=== PATIENT | female | born 1965 | race Caucasian/White ===

== ENCOUNTER 2017-09-22 14:42 | Emergency (ER) | payer BC ==
[2017-09-22 15:07] VITALS: RESP 16
--- NOTE | 2017-09-22 15:56 | EDPHY ---
H & P Stated Complaint: Lac to lower lip Time Seen by Provider: 09/22/17 15:56 HPI/ROS: HPI: This is a 52-year-old female presents with Chief Complaint: Lac to lower lip Location: Left inner and outer lip Quality: Laceration Duration: 1-2 hours prior to arrival Signs and Symptoms: No LOC, No bleeding, no radiation, no numbness, no weakness , no tingling, no incontinence, no decreased range of motion, no swelling, + pain Timing: Sudden Severity: [id number] Context: Patient was outside playing with her children and fetch with the dog when the stick accidentally hit her mouth, she felt immediate plane and had some bleeding that stopped after direct pressure. She denies any oral trauma or dental loosening. No LOC. Denies headache/neck pain. Reports her tetanus is up-to-date. Modifying Factors: Direct pressure with relief of bleeding Comment: ROS: see HPI Constitutional: No fever, no chills, no weight loss Eyes: No blurred vision Respiratory: No shortness of breath, no cough Cardiovascular: No chest pain Gastrointestinal: No nausea, no vomiting no diarrhea Genitourinary: No dysuria Extremities: No myalgias Neurologic: No weakness, no numbness Skin: No rashes Hematologic: No bruising, no bleeding MEDICAL/SURGICAL/SOCIAL HISTORY: Medical history: Generally healthy. Does not take any regular medications. Surgical history: Denies Social history: . CONSTITUTIONAL: Pleasant adult white female, appears younger than stated age, awake and alert, no obvious distress HEENT: normocephalic, PERRL, EOMI. Tympanic membranes clear. Oropharynx clear, no dental trauma, no dental loosening, 1.5 cm linear superficial incision on the left lower buccal mucosa sparing the vermilion border and 0.5 cm superficial laceration at the corner of the left side of her mouth sparing the vermilion border. no exudate and moist pink mucosa. Airway patent. No lymphadenopathy. No meningismus. Cardiovascular: Normal S1/S2, regular rate, regular rhythm, without murmur rub or gallop. PULMONARY/CHEST: Symmetrical and nontender. Clear to auscultation bilaterally. Good air movement. No accessory muscle usage. ABDOMEN: Soft, nondistended, nontender, no rebound, no guarding, no peritoneal signs, no masses or organomegaly. No CVAT. EXTREMITIES: 2/2 pulses, strength 5/5, no deformities, no clubbing, no cyanosis or edema. NEUROLOGICAL: no focal neuro deficits. GCS 15. SKIN: Warm and dry, no erythema. no rash. Good capillary refill. Source: Patient Exam Limitations: No limitations - Personal History LMP (Females 10-55): Post Menopausal Current Tetanus Diphtheria and Acellular Pertussis (TDAP): Yes - Medical/Surgical History Other PMH: healthy - Social History Smoking Status: Never smoked Constitutional: Initial Vital Signs Temperature (C) 37 C 09/22/17 15:00 Heart Rate 71 09/22/17 15:00 Respiratory Rate 16 09/22/17 15:00 Blood Pressure 104/69 09/22/17 15:00 O2 Sat (%) 98 09/22/17 15:00 O2 Delivery Mode Room Air Allergies/Adverse Reactions: Penicillins Allergy (Intermediate, Verified 09/22/17 15:04) Hives codeine Allergy (Mild, Verified 09/22/17 15:04) GI Home Medications: Medication Instructions Recorded Chlorhexidine Gluconate [Periogard] 15 ml MM Q4HRS* #240 mouthwash 09/22/17 Medical Decision Making Procedures: Procedure: Laceration repair. Verbal consent was obtained from the patient. The 1.5 cm linear superficial incision on the left lower buccal mucosa sparing the vermilion border was anesthetized in the usual fashion using 3 mL of 1% lidocaine with epinephrine. The wound was irrigated, draped and explored to its base with a gloved finger. There were no deep structures involved. No tendon injury was identified. The wound was repaired with # 3, 6 0 Vicryl in simple interrupted pattern. Good hemostasis was achieved. Patient tolerated procedure well. The procedure was performed by myself. Procedure: Laceration repair. Verbal consent was obtained from the patient. The and 0.5 cm superficial laceration at the corner of the left lower side of her mouth sparing the vermilion border was anesthetized in the usual fashion. The wound was irrigated , draped and explored to its base with a gloved finger. There were no deep structures involved. No tendon injury was identified. The wound was repaired with Dermabond. Good hemostasis was achieved and patient tolerated procedure well. The procedure was performed by myself. ED Course/Re-evaluation: Wound care and laceration repair ordered Tetanus booster up-to-date Laceration was not through and through. No signs of neurovascular compromise/tenting of skin/compartment syndrome/ extremities and joints examined above and below area of concern and are neurovascularly intact/LOC. This patient was seen under the supervision of my secondary supervising physician. I evaluated care for this patient independently. Discussed this patient with Dr. Ballesteros who did not see the patient. Differential Diagnosis: Differential diagnosis includes but is not limited to through and through laceration, superficial laceration, dental trauma, concussion. Departure - Departure Disposition: Home, Routine, Self-Care Clinical Impression: Laceration of lip without complication Qualifiers: Encounter type: initial encounter Qualified Code(s): S01.511A - Laceration without foreign body of lip, initial encounter Condition: Good Instructions: Facial Laceration (ED), Skin Adhesive Care (ED) Additional Instructions: Three absorbable sutures were used to close laceration on the inside of your lip and skin glue was used on the superficial laceration on the outside of your lip. Please to not scrub the area with the skin glue. It will slowly fall off on its own. This sutures on the inside your liver dissolve full and do not need to be removed. Take Tylenol 650 mg every 4 hours and/or Ibuprofen 600 mg every 8 hours with food as needed for pain. Used ParaGard mouthwash 3 times a day after eating as well as at bedtime for the next 5 days. Referrals: Hillary Mckeon MD [Primary Care Provider] - As per Instructions Prescriptions: Chlorhexidine Gluconate [Periogard] 15 ml MM Q4HRS* #240 mouthwash
[2017-09-22] MEDS ORDERED: SKIN ADHESIVE (DERMABOND) 1 EACH TP ONE (16:13)
[2017-09-22 16:40] VITALS: BP 116/72; PULSE 73; TEMP 98.6; O2SAT 99
== END 2017-09-22 16:36 | disposition home or self-care (01) ==
PROC: 0CQ4XZZ Repair Buccal Mucosa, External Approach (ICD-10-PCS; principal; 2017-09-22)
DX: S01.511A Laceration without foreign body of lip, initial encounter (principal); W22.8XXA Striking against or struck by other objects, initial encounter; Y99.8 Other external cause status; Y93.89 Activity, other specified

== ENCOUNTER → 2017-10-10 | Outpatient (CLI) | payer BC | LOC: BMCIMAGING 14:00 | PROVIDERS: ATTEND Family Medicine | DX: M53.3 Sacrococcygeal disorders, not elsewhere classified (principal) ==

== ENCOUNTER → 2018-04-20 | Outpatient (CLI) | payer BC | LOC: FIMAGING 12:11 | PROVIDERS: ATTEND Family Medicine | DX: Z12.31 Encounter for screening mammogram for malignant neoplasm of breast (principal) ==